=== PATIENT | female | born 1975 | race Hispanic/Latino ===

== ENCOUNTER 2019-01-03 14:56 | Emergency (ER) | payer SELFPAY ==
[2019-01-03 15:52] LABS: RAPID GROUP A STREP NEGATIVE (NEGATIVE)
[2019-01-03] MEDS ORDERED: LIDOCAINE HCL-MPF 1% 2ML VIAL ONE (15:56)
[2019-01-03] MEDS ORDERED: CEFTRIAXONE SODIUM 1 GM ONE (15:56)
[2019-01-03] MEDS ORDERED: ACETAMINOPHEN-CODEINE 300/30MG TAB ONE (15:56)
== END 2019-01-03 16:09 | disposition home or self-care (01) ==
LOC: EDH 14:56
DX: H66.002 Acute suppurative otitis media without spontaneous rupture of ear drum, left ear (principal)
CPT/HCPCS: 87804 ×2; 87880; 96372; 99284; J0696; J3490